=== PATIENT | male | born 1960 | race African-American/Black ===

== ENCOUNTER 2016-09-06 20:37 | Emergency (ER) | payer OTHER ==
[~2016-09-06] VITALS: Ht 193 cm; Wt 112.9 kg
[2016-09-06 20:46] VITALS: BP 137/99
--- NOTE | 2016-09-07 02:51 | NUR ---
Patient ambulated to bed 08.
--- NOTE | 2016-09-07 02:52 | NUR ---
PATIENT PRESENTS TO ED WITH C/O CHEST PAIN SINCE 8PM, AND HIGH BP LEVEL AT HOME, NO CHEST PAIN AT THIS TIME, VSS, DENIES N/V/D; AAOX4 WITH EVEN AND STEADY GAIT; SKIN IS PINK/WARM/DRY; LUNGS CLEAR BL; HR EVEN AND REGULAR; PT DENIES ANY FEVER, SOB, OR COUGH AT THIS TIME; PATIENT POSITIONED FOR COMFORT; HOB ELEVATED; BEDRAILS UP X2; BED DOWN. ER MD MADE AWARE OF PT STATUS.
--- NOTE | 2016-09-07 03:34 | NUR ---
Patient going to XRAY via wheelchair per tech.
--- NOTE | 2016-09-07 03:37 | NUR ---
Patient back from XRAY via wheelchair per tech.
[2016-09-07 04:01] LABS: BASOPHILS # (AUTO) 0.3 K/uL (0.00-0.22); BASOPHILS % (AUTO) 3.1 % (0.0-2.0); EOSINOPHILS # (AUTO) 0.2 K/uL (0-0.4); EOSINOPHILS % (AUTO) 1.7 % (0.0-4.0); HEMATOCRIT 48.4 % (36-52); HEMOGLOBIN 15.7 g/dL (12.0-18.0); LYMPHOCYTES # (AUTO) 3.5 K/uL (2.0-11.5); LYMPHOCYTES % (AUTO) 37.8 % (20.5-51.1); MEAN CORPUSCULAR HEMOGLOBIN 29 pg (27-31); MEAN CORPUSCULAR HGB CONC 33 g/dL (33-37); MEAN CORPUSCULAR VOLUME 90 fL (80-94); MONOCYTES # (AUTO) 0.8 K/uL (0.8-1.0); MONOCYTES % (AUTO) 9.2 % (1.7-9.3); NEUTROPHILS # (AUTO) 4.3 K/uL (1.8-7.7); NEUTROPHILS % (AUTO) 48.2 % (42.2-75.2); PLATELET COUNT (AUTO) 289 K/uL (140-450); RED BLOOD CELL COUNT(AUTO) 5.39 MIL/uL (4.20-6.10); RED CELL DISTRIBUTION WIDTH 12.4 % (11.6-13.7); WHITE BLOOD COUNT (AUTO) 9.1 K/uL (4.8-10.8)
[2016-09-07 04:20] LABS: ALBUMIN 3.4 g/dL (3.4-5.0); ANION GAP 12.9 (8-16); CALCIUM 8.8 mg/dL (8.5-10.1); CREATININE 0.9 mg/dL (0.7-1.3); POTASSIUM 3.9 mmol/L (3.5-5.1); TOTAL BILIRUBIN 0.3 mg/dL (0.0-1.0); TOTAL PROTEIN, SERUM 7.6 g/dL (6.4-8.2)
[2016-09-07 04:57] VITALS: BP 135/92
--- NOTE | 2016-09-07 04:57 | NUR ---
Patient discharged with v/s stable. Written and verbal after care instructions given and explained. Patient verbalized understanding. Ambulatory with steady gait. All questions addressed prior to discharge. Advised to follow up with PMD.
== END 2016-09-07 04:57 | disposition home or self-care (01) ==
LOC: MED 20:37
DX: R07.89 Other chest pain (principal); I10 Essential (primary) hypertension
CPT/HCPCS: 36415; 71010; 80053; 84484; 85025; 99285

== ENCOUNTER 2019-05-20 14:20 | Outpatient (CLI) | payer OTHER | END 2019-05-20 22:23 | disposition home or self-care (01) | LOC: MRD 14:20 | PROVIDERS: ATTEND Preventive Medicine Preventive Medicine/Occupational Environmental Medicine | DX: M25.551 Pain in right hip (principal); M25.552 Pain in left hip ==

== ENCOUNTER 2020-06-06 14:34 | Emergency (ER) | payer OTHER ==
[~2020-06-06] VITALS: Ht 190.5 cm; Wt 117.9 kg
[2020-06-06 14:41] VITALS: BP 131/86
--- NOTE | 2020-06-06 14:56 | NUR ---
60 Y/O MALE FROM HOME C/O LOWER BACK PAIN WITH INCREASE IN URINATION X 3 WKS. PT STATES 8/10 TIGHTNESS TO LOWER BACK. DENIES TRAUMA/INJURY. PT STATES HE TOOK 600MG IBUPROFEN AT 0930 WITH MINIMAL PAIN RELIEF. SKIN WARM, DRY, INTACT. VSS MEDHX: ASTHMA, HTN
[2020-06-06] MEDS ORDERED: CYCLOBENZAPRINE 10 MG TAB PO ONE (15:10)
[2020-06-06] MEDS ORDERED: KETOROLAC 60 MG/2 ML VIAL IM ONE (15:10)
--- NOTE | 2020-06-06 15:20 | NUR ---
PATIENT TAKEN TO XRAY VIA WHEELCHAIR
--- NOTE | 2020-06-06 15:33 | NUR ---
Pt returned from Xray.
[2020-06-06] MEDS ORDERED: NAPR-54 PO (16:17)
[2020-06-06] MEDS ORDERED: CYCL10TA33 PO (16:17)
--- NOTE | 2020-06-06 16:17 | NUR ---
Pt states positive pain relief after medication; states pain 3/10.
[2020-06-06 16:41] VITALS: BP 132/81
--- NOTE | 2020-06-06 16:42 | NUR ---
Patient discharged with v/s stable. Written and verbal after care instructions given and explained. Patient alert, oriented and verbalized understanding of instructions. Ambulatory with steady gait. All questions addressed prior to discharge. ID band removed. Patient advised to follow up with PMD. Rx of CYCLOBENZAPRINE AND NAPROSYN given. Patient educated on indication of medication including possible reaction and side effects. Opportunity to ask questions provided and answered.
== END 2020-06-06 16:42 | disposition home or self-care (01) ==
LOC: MED 14:34
DX: M54.5 Low back pain (principal); J45.909 Unspecified asthma, uncomplicated; I10 Essential (primary) hypertension
CPT/HCPCS: 72110; 96372; 99283; J1885

== ENCOUNTER 2020-07-05 07:50 | Outpatient (CLI) | payer OTHER ==
[~2020-07-05 07:50] MED LIST: CYCL10TA33 PO; NAPR-54 PO
[2020-07-05 08:23] LABS: BASOPHILS % (AUTO) 0.6 % (0.0-2.0); EOSINOPHILS # (AUTO) 0.1 K/uL (0-0.4); EOSINOPHILS % (AUTO) 1.2 % (0.0-4.0); HEMATOCRIT 45.1 % (36-52); HEMOGLOBIN 15.4 g/dL (12.0-18.0); LYMPHOCYTES # (AUTO) 1.7 K/uL (2.0-11.5); LYMPHOCYTES % (AUTO) 26.6 % (20.5-51.1); MEAN CORPUSCULAR HEMOGLOBIN 30 pg (27-31); MEAN CORPUSCULAR HGB CONC 34 g/dL (33-37); MONOCYTES # (AUTO) 0.6 K/uL (0.8-1.0); NEUTROPHILS # (AUTO) 3.9 K/uL (1.8-7.7); NEUTROPHILS % (AUTO) 62.6 % (42.2-75.2); PLATELET COUNT (AUTO) 261 K/uL (140-450); RED BLOOD CELL COUNT(AUTO) 5.07 MIL/uL (4.20-6.10); RED CELL DISTRIBUTION WIDTH 13.1 % (11.6-13.7); WHITE BLOOD COUNT (AUTO) 6.2 K/uL (4.8-10.8)
[2020-07-05 08:41] LABS: APPEARANCE,URINE CLEAR (CLEAR); BILIRUBIN,URINE NEGATIVE (NEGATIVE); BLOOD, URINE NEGATIVE (NEGATIVE); COLOR,URINE YELLOW (YELLOW); LEUKOCYTE ESTERASE ,URINE NEGATIVE (NEGATIVE); NITRITE, URINE NEGATIVE (NEGATIVE); UGLUCOSE 3+ (NEGATIVE)
[2020-07-05 08:45] LABS: RBC,URINE 0-5 /HPF (0-5); WBC,URINE 0-5 /HPF (0-5)
[2020-07-05 08:47] LABS: ALBUMIN 3.5 g/dL (3.4-5.0); CARBON DIOXIDE 28.4 mmol/L (21-32); CHOL/HDL RATIO 4.8 (1-4.5); POTASSIUM 3.4 mmol/L (3.5-5.1); THYROID STIMULATING HORMONE 1.14 uIU/mL (0.34-3.74); TOTAL BILIRUBIN 0.5 mg/dL (0.0-1.0)
[2020-07-06 08:07] LABS: T4 FREE (DIRECT) 1.2 ng/dL (0.82-1.77)
== END 2020-07-05 21:27 | disposition home or self-care (01) ==
LOC: MLB 07:50
PROVIDERS: ATTEND Preventive Medicine Preventive Medicine/Occupational Environmental Medicine
DX: I10 Essential (primary) hypertension (principal); E78.2 Mixed hyperlipidemia; E55.9 Vitamin D deficiency, unspecified; R73.03 Prediabetes; Z12.5 Encounter for screening for malignant neoplasm of prostate; Z00.00 Encounter for general adult medical examination without abnormal findings
CPT/HCPCS: 36415; 80053; 81001; 82043; 82306; 83036; 84154; 84439; 84443; 84480; 85025

== ENCOUNTER 2022-04-19 21:16 | Emergency (ER) | payer OTHER ==
[~2022-04-19] VITALS: Ht 190.5 cm; Wt 113.4 kg
[2022-04-19 21:30] VITALS: BP 182/63
--- NOTE | 2022-04-19 21:49 | NUR ---
TO LOBBY FOLLOWING TRIAGE
[2022-04-19] MEDS ORDERED: CLONIDINE HYDROCHLORIDE 0.1 MG TAB PO ONE (23:50)
[2022-04-19] MEDS ORDERED: LABETALOL 20 MG/4 ML VIAL IVP ONE (23:50)
[2022-04-20 00:20] LABS: BASOPHILS # (AUTO) 0.1 K/uL (0.00-0.22); BASOPHILS % (AUTO) 0.6 % (0.0-2.0); EOSINOPHILS # (AUTO) 0.1 K/uL (0-0.4); EOSINOPHILS % (AUTO) 1.1 % (0.0-4.0); HEMATOCRIT 47.9 % (36-52); HEMOGLOBIN 16.2 g/dL (12.0-18.0); LYMPHOCYTES # (AUTO) 3.2 K/uL (2.0-11.5); LYMPHOCYTES % (AUTO) 36.2 % (20.5-51.1); MEAN CORPUSCULAR HEMOGLOBIN 29 pg (27-31); MEAN CORPUSCULAR HGB CONC 34 g/dL (33-37); MEAN CORPUSCULAR VOLUME 86.9 fL (80-94); MONOCYTES # (AUTO) 0.9 K/uL (0.8-1.0); MONOCYTES % (AUTO) 9.8 % (1.7-9.3); NEUTROPHILS # (AUTO) 4.7 K/uL (1.8-7.7); NEUTROPHILS % (AUTO) 52.3 % (42.2-75.2); PLATELET COUNT (AUTO) 256 K/uL (140-450); RED BLOOD CELL COUNT(AUTO) 5.51 MIL/uL (4.20-6.10); RED CELL DISTRIBUTION WIDTH 13.1 % (11.6-13.7); WHITE BLOOD COUNT (AUTO) 8.9 K/uL (4.8-10.8)
[2022-04-20 00:45] LABS: ALBUMIN 3.7 g/dL (3.4-5.0); ANION GAP 13.5 (8-16); CARBON DIOXIDE 28.2 mmol/L (21-32); CREATININE 1.2 mg/dL (0.6-1.3); POTASSIUM 3.7 mmol/L (3.5-5.1); TOTAL BILIRUBIN 0.2 mg/dL (0.0-1.0)
--- NOTE | 2022-04-20 00:49 | NUR ---
PT TAKEN TO ER BED 4
[2022-04-20] MEDS ORDERED: lisinopriL 20 MG TAB PO ONE (00:50)
--- NOTE | 2022-04-20 01:07 | NUR ---
pt is here for headache, he said when he touched his head is hurt, ear pain for about week. alert oriented x4 and ambulatory.
[2022-04-20 01:29] VITALS: BP 126/60
== END 2022-04-20 01:29 | disposition home or self-care (01) ==
LOC: MED 21:16
DX: R51.9 Headache, unspecified (principal); I10 Essential (primary) hypertension; J45.909 Unspecified asthma, uncomplicated; Z79.899 Other long term (current) drug therapy
CPT/HCPCS: 36415; 70450; 80053; 84484; 85025; 93005; 99285